=== PATIENT | male | born 1950 | race Caucasian/White ===

== ENCOUNTER → 2016-11-20 | Outpatient (CLI) | payer OTHER, MEDICARE ==
[~2016-11-20] MED LIST: AMLODIPINE BESY10 MG PO; CENTRUM SILVER1 EAC1 PO; CLONAZEPAM1 MG PO; CYCLOBENZAPRINE10 MG PO; DULOXETINE HCL60 MG PO; FLEXERIL10 MG PO; LIPITOR40 MG PO; LODINE400 MG PO; NAPROSYN500 MG PO; NORCO 5/3251 TABLET PO; ULTRAM50 MG PO
== END | disposition home or self-care (01) ==
DX: M17.11 Unilateral primary osteoarthritis, right knee (principal); R26.2 Difficulty in walking, not elsewhere classified; M25.561 Pain in right knee; M25.661 Stiffness of right knee, not elsewhere classified; M62.81 Muscle weakness (generalized); Z74.1 Need for assistance with personal care
CPT/HCPCS: 97161 GP; 97165 GO; 97530 GP; 97537 GO; G8978 GP; G8979 GP; G8980 GP; G8987 GO; G8988 GO; G8989 GO

== ENCOUNTER 2016-12-23 21:33 | Inpatient (IN) | payer OTHER, MEDICARE ==
[~2016-12-23] VITALS: Ht 185.4 cm; Wt 82.2 kg
[~2016-12-23 21:33] MED LIST changes: +CYMBALTA60 MG PO; +FIORINAL 50-321 EACH PO; +KLONOPIN1 MG PO; +NORVASC10 MG PO
[2016-12-24 06:26] VITALS: BP 147/89
[2016-12-24 12:19] VITALS: BP 131/76
[2016-12-24 14:00] VITALS: BP 135/76
[2016-12-24 15:48] VITALS: BP 130/73
[2016-12-24 18:09] VITALS: BP 118/63
[2016-12-24 20:13] VITALS: BP 120/67
[2016-12-25 00:30] VITALS: BP 119/76
[2016-12-25 04:00] VITALS: BP 135/70
[2016-12-25 05:05] LABS: HEMATOCRIT 35.9 % (38.0-50.0); MCV 90.2 FL (86-99)
[2016-12-25 06:01] LABS: ANION GAP 8 MEQ/L (2-14); CHLORIDE 102 MEQ/L (99-109); GFR ESTIMATE (CALCULATED) 46 mL/min/; GLUCOSE 131 mg/dL (70-99); POTASSIUM 4.3 MEQ/L (3.7-5.4); SAMPLE HEMOLYSIS CHECK 0; SAMPLE ICTERIC CHECK 0; SAMPLE LIPEMIA CHECK 0; SODIUM 138 MEQ/L (136-147); UREA NITROGEN (BUN) 16 mg/dL (9-23)
[2016-12-25 07:07] VITALS: BP 124/67
[2016-12-25 11:37] VITALS: BP 138/75
[2016-12-25 15:50] VITALS: BP 141/80
[2016-12-25 20:17] VITALS: BP 153/81
[2016-12-26] VITALS: BP 166/86
[2016-12-26 04:19] VITALS: BP 142/83
[2016-12-26 06:14] LABS: HEMATOCRIT 38.5 % (38.0-50.0); MCV 91.2 FL (86-99)
[2016-12-26 08:06] VITALS: BP 140/75
[2016-12-26] MEDS ORDERED: ELIQUIS2.5 MG PO (08:28)
[2016-12-26 11:41] VITALS: BP 118/65
[2016-12-26 15:50] VITALS: BP 134/74
[2016-12-26 20:11] VITALS: BP 149/80
[2016-12-27 00:20] VITALS: BP 130/75
[2016-12-27 04:20] VITALS: BP 133/78
[2016-12-27 08:14] VITALS: BP 135/74
[2016-12-27] MEDS ORDERED: HYDROMORPHONE HC2 MG PO (09:08)
== END 2016-12-27 11:12 | DRG 470 ==
LOC: ENRESERV 21:33 → 3WEST 12-24 05:41 → 2SOUTH 12-24 05:41 → 3WEST 12-24 11:51 → 2SOUTH 12-24 16:11 → 3WEST 12-27 11:12
PROVIDERS: Orthopaedic Surgery
PROC: 3E0T3BZ Introduction of Anesthetic Agent into Peripheral Nerves and Plexi, Percutaneous Approach (ICD-10-PCS; principal; 2016-12-24)
PROC: 0SRC0J9 Replacement of Right Knee Joint with Synthetic Substitute, Cemented, Open Approach (ICD-10-PCS; principal; 2016-12-24)
DX: M17.11 Unilateral primary osteoarthritis, right knee (principal); R09.02 Hypoxemia; M71.20 Synovial cyst of popliteal space [Baker], unspecified knee; G47.30 Sleep apnea, unspecified; I10 Essential (primary) hypertension; G43.909 Migraine, unspecified, not intractable, without status migrainosus; K21.9 Gastro-esophageal reflux disease without esophagitis; E78.00 Pure hypercholesterolemia, unspecified; E78.5 Hyperlipidemia, unspecified; F32.9 Major depressive disorder, single episode, unspecified; F41.9 Anxiety disorder, unspecified; Z88.0 Allergy status to penicillin; Z90.5 Acquired absence of kidney
CPT/HCPCS: 71010; 71275; 80048; 85014; 85018; 93970; 94640; 94640 76; 94799; 97530 GO; C1713; J0131; J0330; J1170; J1885; J2250; J2405; J2795; J3010; J7050; Q0175